=== PATIENT | female | born 1980 | race Caucasian/White ===

== ENCOUNTER 2022-10-30 16:31 | Emergency (ER) | payer BC, SELFPAY ==
--- NOTE | ~2022-10-30 | XR_ITS ---
EXAMINATION: XR abdomen/kub 1V INDICATION: Right flank pain TECHNIQUE: Supine views of the abdomen were obtained on 2 radiographs. COMPARISON: 11/03/2017 FINDINGS: Right abdominal calcifications may reflect residual calyceal calcifications of the right ki dney. There is a 4 mm linear calcification projecting lateral to the right L2 transverse process. The re is a questionable 4 mm stone of the left kidney lower pole. The bowel gas pattern is normal. A mod erate volume of colonic stool is present. IMPRESSION: 1. Possible 4 mm linear calcification of the proximal right ureter. 2. Probable bilateral nephrolithiasis. Reviewed, dictated and finalized at location F. EW SCHEDULING COORDINATOR
[2022-10-30 16:43] VITALS: BP 132/96; PULSE 100; RESP 18; TEMP 37.2; O2SAT 98
--- NOTE | 2022-10-30 16:48 | ED.FEMALEGU ---
HPI - Female Genitourinary General Chief complaint: Urogenital-Female Stated complaint: uti symptoms Source: patient and RN notes reviewed Mode of arrival: ambulatory Limitations: no limitations History of Present Illness HPI Narrative: 42 y/o female with history of renal cell cancer and renal stones presented for c/o right flank pain for 2 days. Endorses fever 101 today with nausea and decreased appetite. Reports history of proteus in urine. States pain is 2/10 at this time, but was up to 7/10 yesterday morning. States it has subsided with rest, heat and fluids. Denies significant urinary frequency, urgency, hematuria, vomiting or abdominal pain. 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 Endorses multiple renal stents and lithotripsy procedures. She follows with application security engineer, appt this month. Related Data Home Medications Medication Instructions Recorded Confirmed metoprolol succinate 25 mg capsule 25 mg PO .half tab qd 02/01/20 10/30/22 sprinkle, ext. release 24 hr Allergies Allergy/AdvReac Type Severity Reaction Status Date / Time No Known Allergies Allergy Verified 10/30/22 17:02 Review of Systems Review of Systems: CONSTITUTIONAL: Denies body aches, fever, chills, or sweats. CARDIOVASCULAR: Denies chest pain, palpitations, or edema. RESPIRATORY: Denies cough or dyspnea. GASTROINTESTINAL: Denies abdominal pain, nausea, vomiting, or diarrhea. GENITOURINARY: per HPI SKIN: Denies rash, itching, or wounds. MUSCULOSKELETAL: Denies back pain or myalgia. [facility] Past Medical History Medical History Congenital heart defect Contraception management Renal cell cancer Tetralogy of Fallot Vaginal delivery Surgical History Surgical History History of cholecystectomy History of partial nephrectomy Family History Family History Father Diabetes mellitus Grandparent Diabetes mellitus Family history of malignant neoplasm of ovary Social History Social History Smoking status: Never smoker Alcohol intake: current Comments At time of signature, I have reviewed and agree with nursing past medical, surgical, social and family history unless otherwise noted. Please see nursing chart for further information. There is no relevant family history pertinent to the presenting complaint Exam Narrative: GENERAL: Well-appearing ENT: Mucous membranes pink and moist. NECK: Normal AROM. Supple. CHEST: No respiratory distress. Clear to auscultation. HEART: Regular rate and rhythm. Murmur noted. ABDOMEN: Soft, nontender, nondistended, normal active bowel sounds. No CVA tenderness SKIN: Warm, dry, no rash. NEURO: No focal deficits. Alert and oriented x3. Gait steady. PSYCH: Normal affect. Course Course Emergency Course: Patient is aware of diagnosis, understands and agrees to treatment plan. Anticipatory guidance given. Patient agrees to follow-up as directed and is aware of reasons to seek care at the emergency department. Portions of this record may have been created with voice recognition software Level of Care: Express Care Visit Vital Signs Vital signs: Vital Signs Temperature 99.0 F 10/30/22 16:43 Pulse Rate 100 10/30/22 16:43 Respiratory Rate 18 10/30/22 16:43 Blood Pressure 132/96 H 10/30/22 16:43 Pulse Oximetry 98 10/30/22 16:43 Oxygen Delivery Room Air 10/30/22 16:43 Temperature 99.0 F 10/30/22 16:43 Pulse Rate 100 10/30/22 16:43 Respiratory Rate 18 10/30/22 16:43 Blood Pressure 132/96 H 10/30/22 16:43 Pulse Oximetry 98 10/30/22 16:43 Oxygen Delivery Room Air 10/30/22 16:43 Reviewed MDM - Female Genitourinary MDM Narrative M
== END 2022-10-30 17:50 | disposition home or self-care (01) ==
PROVIDERS: Emergency Provider Nurse Practitioner Family; PCP Family Medicine Adolescent Medicine
DX: N39.0 Urinary tract infection, site not specified (principal); Z85.528 Personal history of other malignant neoplasm of kidney; Z90.5 Acquired absence of kidney; Q24.9 Congenital malformation of heart, unspecified; Z87.442 Personal history of urinary calculi; Z96.0 Presence of urogenital implants
CPT/HCPCS: 74018; 81003; 87077; 87086; 87186; 99213; G0463